=== PATIENT | female | born 1945 | race Caucasian/White ===

== ENCOUNTER 2019-03-30 14:59 | Emergency (ER) | payer MEDICARE ==
[2019-03-30] MEDS ORDERED: Ibuprofen TAB* 600 MG PO ONE (15:22)
--- NOTE | 2019-03-30 16:07 | UC ---
HPI Febrile Illness - HPI Summary HPI Summary: 1 WEEK OF OVERALL MALAISE, BODYACHES, COUGH AND SINUS PRESSURE. EARS FEEL FULL. DID NOT CHECK HER TEMPERATURE AT HOME BUT AT THE WAS NOTED TO HAVE A FEVER OF 103.8. PATIENT IS TACHYCARDIC. - History of Current Complaint Chief Complaint: UCRespiratory Time Seen by Provider: 03/30/19 15:22 Hx Obtained From: Patient, Family/Patient Access Specialist - Onset/Duration: Started Days Ago, Still Present Timing: Constant Initial Severity: Moderate Current Severity: Moderate Pain Intensity: 0 Pain Scale Used: 0-10 Numeric Aggravating Factors: Nothing Alleviating Factors: Nothing Associated Signs and Symptoms: Chills, Cough, Headache, Myalgia - Allergy/Home Medications Allergies/Adverse Reactions: Allergies Allergy/AdvReac Type Severity Reaction Status Date / Time esomeprazole [From Nexium] Allergy Diarrhea Verified 03/30/19 15:22 metoprolol Allergy See Comment Verified 03/30/19 15:22 Penicillins Allergy Rash Verified 03/30/19 15:22 PMH/Surg Hx/FS Hx/Imm Hx Cardiovascular History: Hypertension Psychological History: Anxiety - Surgical History Surgical History: Yes Surgery Procedure, Year, and Place: C-SECTIONS X 2. TONSILLECTOMY. HYSTERECTOMY-PARTIAL. SINUS SURGERY. HERNIA REPAIR-INGUINAL. OVARY REMOVED - Social History Alcohol Use: None Substance Use Type: None Smoking Status (MU): Former Smoker Have You Smoked in the Last Year: No When Did the Patient Quit Smoking/Using Tobacco: 30 yrs ago - Immunization History Most Recent Influenza Vaccination: may 2014 Most Recent Tetanus Shot: unknown Most Recent Pneumonia Vaccination: <5 years Review of Systems All Other Systems Reviewed And Are Negative: Yes Constitutional: Positive: Fever, Chills ENT: Positive: Sinus Congestion, Sinus Pain/Tenderness. Negative: Nasal Discharge Respiratory: Positive: Cough Cardiovascular: Positive: Negative Gastrointestinal: Positive: Negative Musculoskeletal: Positive: Myalgia Neurological: Positive: Headache Physical Exam Triage Information Reviewed: Yes Appearance: Well-Nourished, Ill-Appearing - MILD/MODERATE Vital Signs: Initial Vital Signs Temp 103.8 F 03/30/19 15:12 Pulse 131 03/30/19 15:12 Resp 28 03/30/19 15:12 BP 141/75 03/30/19 15:12 Pulse Ox 96 03/30/19 15:12 Laboratory Tests 03/30/19 15:55 POC Urine Color Yellow POC Urine Clarity Clear POC Urine pH 5.5 POC Ur Specif [place] 1.025 POC Urine Protein Trace A POC Ur Glucose (UA) Negative POC Urine Ketones Negative POC Urine Blood 1+ A POC Urine Nitrite Negative POC Urine Bilirubin Negative POC Urine Urobilinogen 0.2 POC U Leukocyte Esteras Negative Vital Signs Reviewed: Yes Eyes: Positive: Conjunctiva Clear ENT: Positive: Hearing grossly normal, Pharynx normal, TMs normal Neck: Positive: Supple, Nontender, No Lymphadenopathy Respiratory Exam: Normal Cardiovascular: Positive: Tachycardia Abdomen Description: Positive: Nontender, Soft Musculoskeletal: Positive: No Edema Neurological: Positive: Alert Psychological: Positive: Age Appropriate Behavior Skin: Negative: Rashes Diagnostics - Radiology CXR Radiology Interpretation Completed By: Radiologist Summary of Radiographic Findings: No active cardiopulmonary disease is noted. Course/Dx - Course Course Of Treatment: PATIENT ARRIVED WITH SIGNIFICANT FEVER AND TACHYCARDIA. WAS RELATIVELY TACHYPNEIC WELL. INITIALLY OXYGEN SATURATION WAS 96% BUT THEN DECREASED TO 93%. FEVER NOT SIGNIFICANTLY AFFECTED BY ANTIPYRETICS. CHEST X-RAY UNREMARKABLE. URINE WITH 1+ BLOOD BUT OTHERWISE UNREMARKABLE. UNCLEAR ETIOLOGY OF PATIENT'S SYMPTOMS. SHE REQUIRES FURTHER EVALUATION AND A HIGHER LEVEL OF CARE THAN WHAT IS AVAILABLE IN THE . TO THE [facility] ER BY PRIVATE CAR. PT OFFERED TRANSPORT TO THE ER BY AMBULANCE BUT DECLINES. ADVISED THAT BY NOT TRAVELING IN A MONITORED SETTING SHE COULD BE RISKING WORSENING OF HER CONDITION THAT COULD POSE A THREAT TO HER LIFE, HEALTH AND MEDICAL SAFETY. SHE VERBALIZES UNDERSTANDING AND CONTINUES TO DECLINE AMBULANCE TRANSFER. - Diagnoses Provider Diagnosis: Febrile illness Discharge - Sign-Out/Discharge Documenting (check all that apply): Patient Departure All imaging exams completed and their final reports reviewed: Yes - Discharge Plan Condition: Stable Disposition: TRANS [facility] Patient Education Materials: Fever in Adults (ED) Referrals: Lynn Sierra MD [Primary Care Provider] - If Needed Additional Instructions: CHEST X-RAY TODAY UNREMARKABLE. URINE WITH SOME BLOOD BUT OTHERWISE UNREMARKABLE. YOU HAVE A SIGNIFICANT FEVER, TACHYCARDIA AND RELATIVELY LOW OXYGEN SATURATION. GIVEN YOUR PRESENTATION AND OVERALL MALAISE YOU REQUIRE FURTHER WORKUP AND A HIGHER LEVEL OF SERVICE THAN WHAT IS AVAILABLE AT THE URGENT CARE. GO DIRECTLY TO THE [facility] ER FROM HERE FOR FURTHER EVALUATION. YOU HAVE DECLINED TRANSFER TO THE ER BY AMBULANCE. BE ADVISED THAT BY NOT TRAVELING IN A MONITORED SETTING YOU COULD BE RISKING WORSENING OF YOUR CONDITION THAT COULD POSE A THREAT TO YOUR LIFE, HEALTH AND MEDICAL SAFETY. BE SURE TO FOLLOW-UP WITH YOUR PCP IN THE NEXT COUPLE OF WEEKS FOR A REPEAT OF YOUR URINE TEST TO ENSURE THE BLOOD HAS CLEARED. IF IT HAS NOT CLEARED YOU MAY BENEFIT FROM UROLOGY EVALUATION. - Billing Disposition and Condition Condition: STABLE Disposition: Trans Higher Lvl of Care Fac
[2019-03-30 16:24] VITALS: BP 139/72
== END 2019-03-30 16:40 | disposition short-term general hospital (02) ==
LOC: UCEAST 14:59
DX: R50.9 Fever, unspecified (principal); R00.0 Tachycardia, unspecified; I10 Essential (primary) hypertension; Z88.0 Allergy status to penicillin; Z87.891 Personal history of nicotine dependence
CPT/HCPCS: 71046; 81003; 99213; A9270-GY; G0463

== ENCOUNTER 2024-05-02 16:11 | Observation (INO) ==
[2024-05-02 17:08] LABS: ABS Basophils 0.1 10^3/uL (0.0-0.1); ABS Eosinophils 0.1 10^3/uL (0.0-0.5); ABS Lymphocytes 1.7 10^3/uL (1.0-4.8); ABS Monocytes 0.7 10^3/uL (0.0-0.9); ABS Neutrophils 4.2 10^3/uL (1.5-7.6); Eosinophil % 2.1 %; Hematocrit 37.4 % (35-45); Hemoglobin 12.4 g/dL (11.5-14.3); Mean Corpuscular Hemoglobin 25.9 pg (27-33); Mean Corpuscular Hgb Conc 33.2 g/dL (31-36); Mean Corpuscular Volume 78.1 fL (80-97); Mean Platelet Volume 8.8 fL (7.5-11.2); Platelet Count 304 10^3/uL (150-450); Red Blood Count 4.78 10^6/uL (3.63-4.92); Red Cell Distribution Width 16.3 % (12-17); White Blood Count 6.9 10^3/uL (3.8-11.8)
[2024-05-02 17:21] LABS: INR 1.03 (0.83-1.13)
[2024-05-02 17:36] LABS: Albumin/Globulin Ratio 1.3 (1-3); Calcium 9.6 mg/dL (8.6-10.3); Creatinine, Serum 1.07 mg/dL (0.51-0.95); Potassium 4.4 mmol/L (3.5-5.0); Total Bilirubin 0.3 mg/dL (0.2-1.0); eGFR CKD-EPI 53.8 (>60)
[2024-05-02] MEDS: Iodixanol (CONTRAST) 320 MG/ML 100 ML SDV IV ONE (18:07)
[2024-05-02 18:56] LABS: High Sensitivity Troponin 1 Hr 4 pg/mL (<15)
[2024-05-03] MEDS ORDERED: Ondansetron 4 mg VIAL 2 MG/ML 2 ml VIAL ONE ×2 (04:13→13:08)
[2024-05-03] MEDS: Ondansetron 4 mg VIAL 2 MG/ML 2 ml VIAL IV ONE (04:16)
[2024-05-03] MEDS: Enoxaparin 40 MG/0.4 ML SYR SUBCUT SCH (04:36)
[2024-05-03 05:38] LABS: HDL Cholesterol 66.3 mg/dL
[2024-05-03 05:52] LABS: TSH Ultra Thyroid Stim Horm 9.74 mcIU/mL (0.34-5.60)
[2024-05-03] MEDS: Sulfur Hexaflouride MICROSPHR 25 MG VIAL IV ONE (08:23)
[2024-05-03] MEDS ORDERED: Sulfur Hexaflouride MICROSPHR 25 MG VIAL ONE (08:34)
[2024-05-03] MEDS: Aspirin EC 81 mg TAB.EC (enteric coated) PO SCH (08:37)
[2024-05-03] MEDS: Conjugated Estrogens 0.3mg TAB PO SCH (08:38)
[2024-05-03] MEDS ORDERED: Regadenoson 0.4 MG/5 ML SYRINGE ONE (10:41)
[2024-05-03 12:22] LABS: Free T4 0.94 ng/dL (0.61-1.12)
[2024-05-03] MEDS ORDERED: Lidocaine 1% MPF 5 ML VIAL ONE (15:49)
[2024-05-03] MEDS ORDERED: fentaNYL 100 mcg/2 ml 50 MCG/ML VIAL ONE ×2 (15:49→17:10)
[2024-05-03] MEDS ORDERED: nitroGLYCERIN DRIP 25,000 MCG/250 ML BTL ONE (15:49)
[2024-05-03] MEDS ORDERED: Heparin 2 UNITS/ML 1000 mls 2,000 ML IV ONE (15:49)
[2024-05-03] MEDS ORDERED: Heparin 1,000 UNIT/ML 10 ml (10,000 UNITS) CATHLAB/DIALYSIS ONE (15:49)
[2024-05-03] MEDS ORDERED: Midazolam 5 mg/5 ml VIAL 1 mg/ml 5 ml VIAL (5 mg) ONE (15:49)
[2024-05-03] MEDS ORDERED: niCARdipine 0.1MG/ML IVPREMIX 20 MG/200 ML BAG IV ONE (15:50)
[2024-05-03] MEDS ORDERED: Iohexol 350 (CONTRAST) 200 ML MDV IV ONE (15:50)
[2024-05-03] MEDS ORDERED: Flumazenil 0.5 mg/5 ml 0.1 MG/ML 5 ml VIAL IV PRN (16:04)
[2024-05-03] MEDS ORDERED: Naloxone 0.4 mg VIAL 0.4 mg/ml 1 ml VIAL IV PUSH PRN (16:04)
[2024-05-03] MEDS ORDERED: ADENOSINE (DIAGNOSTIC) 3 MG/ML VIAL 90MG/30 ML IVPB ONE (16:53)
[2024-05-03] MEDS: fentaNYL 100 mcg/2 ml 50 MCG/ML VIAL IV SLOW PU ONE (20:00)
[2024-05-03] MEDS: Midazolam 10 mg/10 ml VIAL 1 mg/ml 10 ml VIAL (10 mg) IV SLOW PU ONE (20:01)
[2024-05-03] MEDS: Lactated Ringers 1000 ml BAG 1,000 ML IV ONE (20:31)
[2024-05-04 07:08] LABS: ABS Basophils 0.1 10^3/uL (0.0-0.1); ABS Eosinophils 0.1 10^3/uL (0.0-0.5); ABS Monocytes 0.7 10^3/uL (0.0-0.9); ABS Neutrophils 3.8 10^3/uL (1.5-7.6); Eosinophil % 1.4 %; Hematocrit 35.7 % (35-45); Hemoglobin 11.9 g/dL (11.5-14.3); Mean Corpuscular Hemoglobin 26.1 pg (27-33); Mean Corpuscular Hgb Conc 33.2 g/dL (31-36); Mean Corpuscular Volume 78.5 fL (80-97); Mean Platelet Volume 9.1 fL (7.5-11.2); Nucleated Red Blood Cells % 0.1 %/100WBC (0.0-0.8); Platelet Count 273 10^3/uL (150-450); Red Blood Count 4.55 10^6/uL (3.63-4.92); Red Cell Distribution Width 16.6 % (12-17); White Blood Count 5.6 10^3/uL (3.8-11.8)
[2024-05-04 07:31] LABS: Calcium 8.7 mg/dL (8.6-10.3); Creatinine, Serum 0.78 mg/dL (0.51-0.95); Magnesium 1.9 mg/dL (1.9-2.7); Potassium 4.4 mmol/L (3.5-5.0); eGFR CKD-EPI 78.7 (>60)
[2024-05-04] MEDS: Ferric Gluconate IV 125 MG in NS 0.9% 100 ml BAG 100 ML IVPB ONE (11:27)
[2024-05-04 14:17] VITALS: BP 111/65
== END 2024-05-04 15:45 | disposition home or self-care (01) ==
LOC: EDHOLD 16:11 → ED 16:11 → SUATTDRO 23:39 → MEDTELE 05-03 11:55
PROVIDERS: ADMIT Internal Medicine; ATTEND Student in an Organized Health Care Education/Training Program